=== PATIENT | male | born 1985 | race Caucasian/White ===

== ENCOUNTER 2020-10-31 13:46 | Emergency (ER) | payer OTHER ==
[~2020-10-31] VITALS: Ht 165.1 cm; Wt 99.8 kg
[2020-10-31] MEDS ORDERED: CYCLOBENZAPRINE10 MG PO (14:17)
[2020-10-31] MEDS ORDERED: PREDNISONE50 MG PO (14:17)
== END 2020-10-31 14:30 | disposition home or self-care (01) ==
LOC: ED 13:46
DX: M54.42 Lumbago with sciatica, left side (principal)